=== PATIENT | female | born 1985 | race Caucasian/White ===

== ENCOUNTER 2021-12-27 12:13 | Outpatient (REF) | payer OTHER, SELFPAY ==
[2021-12-27 13:44] LABS: Hematocrit 45.4 % (37.0-47.0); Hemoglobin 14.4 g/dl (12.0-16.0); Mean Corpuscular HGB Conc 31.7 g/dl (31.0-35.0); Mean Corpuscular Hemoglobin 27.3 pg (27.0-33.0); Mean Platelet Volume 11.1 fL (9.4-12.3); Platelet Count 285 X10*3/uL (160-400); Red Blood Count 5.28 X10*6/uL (4.20-5.50); Red Cell Distribution Width 13.5 % (11.0-16.0); White Blood Count 10.6 X10*3/uL (4.8-10.8)
[2021-12-27 14:01] LABS: Alanine Aminotransferase 19 U/L (0-31); Albumin Level 4.5 g/dL (3.5-5.0); Alkaline Phosphatase 76 U/L (39-117); Anion Gap 14 (12-20); Aspartate Amino Transferase 20 U/L (5-31); Bilirubin Total 0.4 mg/dL (0.0-1.0); Blood Urea Nitrogen 10 mg/dL (9-16); Carbon Dioxide 26 mmol/L (22-29); Chloride 105 mmol/L (96-108); Cholesterol 193 mg/dL; Estimated Glomerular Filt Rate > 60; Glucose Fasting 84 mg/dL (60-99); HDL Cholesterol 37 mg/dL; LDL Cholesterol Calculated 129 mg/dl; Potassium 4.9 mmol/L (3.3-5.1); Sodium 140 mmol/L (135-145); Total Protein 7.8 g/dL (6.5-8.0); Triglycerides 139 mg/dL
[2021-12-27 14:23] LABS: TSH reflex Free T4 0.85 uIU/mL (0.32-4.0)
== END 2021-12-27 12:14 | disposition home or self-care (01) ==
LOC: HO.HMGCLDS 12:13
PROVIDERS: Visit Provider Internal Medicine
DX: Z00.00 Encounter for general adult medical examination without abnormal findings (principal); L73.9 Follicular disorder, unspecified; K80.20 Calculus of gallbladder without cholecystitis without obstruction; E66.3 Overweight; F41.9 Anxiety disorder, unspecified
CPT/HCPCS: 36415; 80053; 80061; 84443; 85027

== ENCOUNTER 2022-01-30 10:10 | Outpatient (REF) | payer OTHER, SELFPAY ==
--- NOTE | ~2022-01-30 | US_ITS ---
EXAMINATION: US ABDOMEN COMPLETE CLINICAL INFORMATION: Calculus in gallbladder. COMPARISON: Abdominal ultrasound 07/20/2010. CT abdomen and pelvis 07/19/2010. TECHNIQUE: Real-time imaging of the abdominal viscera. FINDINGS: PANCREAS: Normal. ABDOMINAL AORTA: The proximal, mid, and distal segments are normal in caliber. INFERIOR VENA CAVA: Visualized portions are normal. LIVER: The liver is normal in size. The liver contour is normal. Parenchymal echogenicity is normal. No focal hepatic lesion. There is no intrahepatic biliary duct dilatation seen. Echogenic structure in the left lobe of the liver likely hemangioma 0.6 cm. GALLBLADDER: There are multiple gallstones, gallbladder is packed with stones the largest of the neck 1.8 x 2.7 cm. There is thickening of the gallbladder wall measuring up to 4 mm. Technologist reported tenderness pressing on the gallbladder. Combined raising the possibility of cholecystitis. COMMON BILE DUCT: Normal in caliber measuring 0.38 cm in diameter. RIGHT KIDNEY: Normal. No hydronephrosis. No renal calculi or focal parenchymal lesions. The kidney measures 12.2 cm in maximum dimension. LEFT KIDNEY: Normal. No hydronephrosis. No renal calculi or focal parenchymal lesions. The kidney measures 13.2 cm in maximum dimension. SPLEEN: Normal. The spleen measures 10.8 cm in maximum dimension. FREE FLUID: None. US/US abdomen complete IMPRESSION: Gallbladder packed with gallstones, there is thickening of the gallbladder wall measuring 4 mm, combined with reported tenderness over the gallbladder raising the possibility of CHOLECYSTITIS. Surgical evaluation recommended. Consider correlation with HIDA scan if clinically indicated. Echogenic structure in the left lobe of the liver probably hemangioma 0.6 cm. (Referring physician staff is being called, to be alerted of the above findings and recommendations.) CM
== END 2022-01-30 10:11 | disposition home or self-care (01) ==
LOC: HO.US 10:10
PROVIDERS: PCP Internal Medicine; Visit Provider Internal Medicine
DX: K80.20 Calculus of gallbladder without cholecystitis without obstruction (principal)
CPT/HCPCS: 76700

== ENCOUNTER → 2022-02-20 09:02 | Outpatient (BNVA) | payer OTHER, SELFPAY | PROVIDERS: PCP Internal Medicine; Referring Provider Internal Medicine; Visit Provider Surgery | DX: K80.11 Calculus of gallbladder with chronic cholecystitis with obstruction (principal); F17.210 Nicotine dependence, cigarettes, uncomplicated; Z79.899 Other long term (current) drug therapy | CPT/HCPCS: 99202 ==

== ENCOUNTER 2022-03-10 06:03 | Day surgery (SDC) | payer OTHER, SELFPAY ==
[2022-03-04 14:56] VITALS: BMI 39.1
--- NOTE | 2022-03-06 13:40 | P.CONAN_ITS ---
Documented by User: Dorinda Cabral NP 03/06/22 13:41 HPI - Anesthesia Eval Consult details Narrative: 37yo F for Cholecystectomy Laparoscopic PMFSH Active Problems Active Problems: All Active Problems (Updated 02/20/22 @ 09:26 by Lamberto Tom MD) Chronic cholecystitis due to gallbladder calculus with obstruction (Acute) Mild asthma (Acute) Chronic folliculitis (Acute) Gallstone (Acute) Anxiety (Acute) Annual physical exam (Acute) Overweight (Acute) Past Medical History Medical History Annual physical exam Anxiety Chronic folliculitis Gallstone Mild asthma Mild heartburn Overweight Seasonal allergies Wears contact lenses Family History Family History Father Hypertension Pulmonary embolism Substance use disorder Mother No problems noted. Surgical History Surgical History Hx of section Social History Social History Household Members Other:: , 3 daughters (5 yo twins and 16 yo), [facility] Are you a primary child caregiver to a significant other at home: Yes (3 children including 5 yr old twins, also at home) Do you presently have visiting nurse or other home services: No Patient Tobacco Use Status: Current everyday Tobacco user Tobacco use type: Cigarette Cigarettes Per Day: 10 Years Smoked: 5 Smoked in Last 30 Days: Yes e-Cigarette/Vaping Use: Never Used Use of substances other than those prescribed or required for medical reasons: No Are you DNR?: No Advance Directives: No Advance Directives Information Provided: Yes Advance Directives on File: No Patient : No FDLMP: 03/07/2022 : No Poor oral hygiene: No Current occupational status: unemployed Meds Allergies Allergy/AdvReac Type Severity Reaction Status Date / Time No Known Allergies Allergy Verified 03/10/22 06:21 Home Medications Medication Instructions Recorded Confirmed Last Taken Type Tums PRN 03/07/22 03/07/22 Unknown History Exam Exam Date and Time: March 06, 2022 1340 Height,Weight and Vital Signs: Height 5 ft 5 in Weight 106.594 kg Pertinent Lab Results Pertinent Lab Results: Laboratory Tests 12/27/21 12/27/21 12:22 12:22 WBC 10.6 Hgb 14.4 Hct 45.4 Plt Count 285 Sodium 140 Potassium 4.9 Chloride 105 Carbon Dioxide 26 BUN 10 Creatinine 0.74 Assessment and Plan Assessment Anesthesia Assessment: Chart Reviewed Documented by User: Aranza Khan MD 03/10/22 07:31 [facility] Past Medical History Medical History Annual physical exam Anxiety Chronic folliculitis Gallstone Mild asthma Mild heartburn Overweight Seasonal allergies Wears contact lenses Family History Family History Father Hypertension Pulmonary embolism Substance use disorder Mother No problems noted. Surgical History Surgical History Hx of section History of Problems with Anesthesia: No Social History Social History Household Members Other:: , 3 daughters (5 yo twins and 16 yo), [facility] Are you a primary child caregiver to a significant other at home: Yes (3 children including 5 yr old twins, also at home) Do you presently have visiting nurse or other home services: No Patient Tobacco Use Status: Current everyday Tobacco user Tobacco use type: Cigarette Cigarettes Per Day: 10 Years Smoked: 5 Smoked in Last 30 Days: Yes e-Cigarette/Vaping Use: Never Used Use of substances other than those prescribed or required for medical reasons: No Are you DNR?: No Advance Directives: No Advance Directives Information Provided: Yes Advance Directives on File: No Patient : No FDLMP: 03/07/2022 : No Poor oral hygiene: No Current occupational status: unemployed Meds Allergies Allergy/AdvReac Type Severity Reaction Status Date / Time No Known Allergies Allergy Verified 03/10/22 06:21 Home Medications Medication Instructions Recorded Confirmed Last Taken Type Tums PRN 03/07/22 03/07/22 Unknown History Exam Airway Mallampati Class: II TM Dist: >3cm Neck ROM: Full Loose/Missing/Broken Teeth: No Heart: RRR Lungs: CTA Assessment and Plan Assessment Anesthesia Assessment: Anesthesia Plan Discussed Final Anesthetic Review History of Problems with Anesthesia: No NPO: Yes ASA Class: II Final Preanesthetic Review: Meds/Allgs Chart Reviewed, Consent Obtained/Reviewed and Anes Risks/Benef Reviewed Patient Risk: Low Procedure Risk: Intermediate Anesthetic Plan Anesthetic Plan: GA Disposition: Standard PACU
[2022-03-07 10:55] VITALS: BMI 38.2
[2022-03-10] VITALS (10 sets, daily range): BP systolic 118–135; BP diastolic 60–82; PULSE 70–98; RESP 16–20; TEMP 36.3–37.2; O2SAT 97–100
[2022-03-10 06:25] LABS: UPreg QC Valid YES; Urine Pregnancy NEGATIVE (NEGATIVE)
[2022-03-10] MEDS: Acetaminophen 325 MG TABLET 650 MG PO (06:52)
[2022-03-10] MEDS: Lactated Ringers 1,000 ML 100 ML IVCONT (06:59)
--- NOTE | 2022-03-10 07:21 | MHC.SHP ---
Pre-Procedural Eval Section A Date of Service: 03/10/22 The patient is an INPATIENT: No Changes since office visit: Yes Patient answered all questions; No Cold of Flu in the past 2 weeks, No New Medical Problems and No Changes in Medication The History & Physical has been completed within 30 days and I have reviewed it.: Yes Section B Chief Complaint: calculus of gallbladder Allergies: Allergies Allergy/AdvReac Type Severity Reaction Status Date / Time No Known Allergies Allergy Verified 03/10/22 06:21 Plan Diagnosis/Plan: Unchanged I have reviewed the history and physical and performed a pertinent physical examination on my patient. No changes have occurred unless specified.
--- NOTE | 2022-03-10 08:47 | P.OP_ITS ---
Operative Note Operative Note Date of Service: 03/10/22 Narrative: Preoperative diagnosis: Biliary colic Postoperative diagnosis: Same Procedure: Laparoscopic cholecystectomy Surgeon: Lamberto Tom MD Manufacturing Production Technician: AURE Page Anesthesia: General endotracheal Indications for procedure: 37 year old female presenting with complaints of abdominal pain in the epigastrium and right upper quadrant found to have a large gallstone at the neck of the gallbladder Operative findings: mildly infamed gallbladder with a large gallstone at the neck. Specimen: gallbladder Estimated blood loss:2 mls Complications:none Procedure details: Patient was brought to the OR and placed in a supine position. After administering general anesthesia the patient's abdomen was prepped with ChloraPrep and draped in a sterile fashion. Local anesthesia consisting of 0.5% Sensorcaine without epinephrine was infiltrated in a periumbilical region. A 5 mm incision was made above the umbilicus in a transverse fashion. The Veress needle was then inserted while elevating abdomin al cavity with towel clips. After positive drop test the abdomen was insufflated to a pressure of 15 mm of mercury. The Veress needle was then removed and a 5 mm trocar inserted. The camera was inserted in the abdomen explored. A 12 mm trocar was then placed in the epigastrium. Two 5 mm trocars placed in the right upper quadrant by the accounting manager assistant controller. The patient was placed in reverse Trendelenburg positioning and rotated to the left. The gallbladder was grasped with the fundus and retracted cephalad by the accounting manager assistant controller. The infundibulum was then grasped and retracted away from the liver bed, also by the accounting manager assistant controller. The Dolphin dissected was then used by the surgeon to dissect the peritoneum off the infundibulum to reveal the junction with the cystic duct. Cystic artery was noted slightly medial and posterior to the cystic duct. After obtaining a critical view the cystic duct was doubly clipped and divided. The cystic artery was then doubly clipped and divided. The gallbladder was then dissected off the liver bed using electrocautery with an L hook. Hemostasis was assured all times using the electrocautery. When the gallbladder is completely dissected off the liver bed was placed in an Endo-Catch bag and brought out through the epigastric incision. The gallbladder was sent to pathology for further examination. The abdomen was then re-examined. The liver bed was irrigated and suctioned dry. No bleeding or bile leak could be identified. CO2 was then evacuated and all trocars removed. Fascia was closed at the epigastric incision using a [id number] Polysorb suture. Skin was closed in all incisions using a subcuticular 4 0 Polysorb suture by both the surgeon and accounting manager assistant controller. Sterile dressings consisting of Steri-Strips, 2 x 2 gauze, and Tegaderm were then applied. The patient tolerated the procedure well. Sponge instrument and needle counts reported as correct. The patient was transferred to PACU in stable condition.
[2022-03-10] MEDS: oxyCODONE HCl Immed Release 5 MG TABLET 10 MG PO (09:08)
[2022-03-10] MEDS: fentaNYL citrate/PF 100 MCG/2 ML VIAL 25 MCG IVPUSH ×2 (09:10→09:22)
[2022-03-10] MEDS: fentaNYL citrate/PF 100 MCG/2 ML VIAL 50 MCG IVPUSH ×2 (09:29→09:35)
== END 2022-03-10 10:25 | disposition home or self-care (01) ==
PROVIDERS: Nurse Practitioner; PCP Internal Medicine; Visit Provider Surgery
PROC: 0FT44ZZ Resection of Gallbladder, Percutaneous Endoscopic Approach (ICD-10-PCS; CPT 47562; principal; 2022-03-10 07:30)
DX: K80.11 Calculus of gallbladder with chronic cholecystitis with obstruction (principal); J45.909 Unspecified asthma, uncomplicated; F17.210 Nicotine dependence, cigarettes, uncomplicated; Z79.899 Other long term (current) drug therapy
CPT/HCPCS: 47562; 81025; 88304; J1100; J2250; J2405; J3010